=== PATIENT | male | born 1990 | race African-American/Black ===

== ENCOUNTER 2021-05-05 08:53 | Emergency (ER) | payer SELFPAY ==
[~2021-05-05] VITALS: Ht 185.4 cm; Wt 110.0 kg
[2021-05-05] MEDS ORDERED: TRAMADOL 50MG TABLET PO ONE (09:30)
[2021-05-05] MEDS ORDERED: KETOROLAC 60MG/2ML VIAL IM ONE (09:30)
[2021-05-05 10:05] VITALS: BP 138/68
[2021-05-05] MEDS ORDERED: IBUP-2030 MT (10:45)
== END 2021-05-05 11:31 | disposition home or self-care (01) ==
LOC: ER 09:10
DX: S80.12XA Contusion of left lower leg, initial encounter (principal); V49.60XA Unspecified car occupant injured in collision with unspecified motor vehicles in traffic accident, initial encounter; Y93.89 Activity, other specified; Y92.89 Other specified places as the place of occurrence of the external cause; Y99.8 Other external cause status
CPT/HCPCS: 73552; 73590; 99284; J1885